=== PATIENT | male | born 1965 | race Two or more races ===

== ENCOUNTER 2020-09-12 12:30 | Emergency (ER) | payer SELFPAY ==
[~2020-09-12] VITALS: Ht 167.6 cm; Wt 77.0 kg
[2020-09-12] MEDS ORDERED: KETOROLAC 30MG/ML VIAL IM ONE (13:15)
[2020-09-12] MEDS ORDERED: CYCLOBENZAPRINE 10MG TABLET PO ONE (13:15)
[2020-09-12] MEDS ORDERED: NAP5EC MT (14:39)
[2020-09-12 14:54] VITALS: BP 167/90
== END 2020-09-12 14:55 | disposition home or self-care (01) ==
LOC: ER 12:30
DX: S30.0XXA Contusion of lower back and pelvis, initial encounter (principal); W01.0XXA Fall on same level from slipping, tripping and stumbling without subsequent striking against object, initial encounter; Y93.89 Activity, other specified; Y92.89 Other specified places as the place of occurrence of the external cause; Y99.8 Other external cause status
CPT/HCPCS: 71045; 96372; 99283; J1885